=== PATIENT | female | born 1990 | race African-American/Black ===

== ENCOUNTER 2022-04-25 19:23 | Emergency (ER) | payer MEDICAID ==
[~2022-04-25] VITALS: Ht 149.9 cm; Wt 86.0 kg
[2022-04-25 19:35] VITALS: BP 116/82
== END 2022-04-25 21:00 | disposition left against medical advice (07) ==
LOC: ER 19:23
DX: Z53.21 Procedure and treatment not carried out due to patient leaving prior to being seen by health care provider (principal); Z88.2 Allergy status to sulfonamides

== ENCOUNTER 2022-10-30 05:29 | Inpatient (IN) | payer MEDICAID ==
[~2022-10-30] VITALS: Ht 149.9 cm; Wt 86.2 kg
[2022-10-30] MEDS ORDERED: LACTATED RINGERS 1,000 ML IV SCH ×2 (06:00→06:30)
[2022-10-30] MEDS ORDERED: LACTATED RINGERS 1,000 ML IV ONE (06:00)
[2022-10-30] MEDS ORDERED: OXYTOCIN 30 UNITS/500ML NS PMX 500 ML IV SCH (06:30)
[2022-10-30] MEDS ORDERED: METHYLERGONOVINE MALEATE 0.2 MG/ML IM PRN ×2 (06:30→17:15)
[2022-10-30] MEDS ORDERED: BUTORPHANOL TARTRATE 2 MG/ML VIAL IV PRN (06:30)
[2022-10-30] MEDS ORDERED: MISOPROSTOL 100MCG TABLET VG SCH (06:30)
[2022-10-30] MEDS ORDERED: CARBOPROST TROMETHAMINE 250 MCG/ML AMPUL IM PRN (06:30)
[2022-10-30] MEDS ORDERED: NALOXONE HCL 0.4 MG/ML 1ML VIAL IM PRN (06:30)
[2022-10-30] MEDS ORDERED: LIDOCAINE HCL 1% 20ML VIAL (Pyxis) INJ INFIL SCH (06:30)
[2022-10-30 06:42] LABS: CLARITY URINE CLEAR (CLEAR); COLOR URINE YELLOW (YELLOW); KETONES URINE NEGATIVE (NEGATIVE); LEUKOCYTE ESTERASE URINE TRACE (NEGATIVE); NITRITE URINE NEGATIVE (NEGATIVE); OCCULT BLOOD URINE 3+ (NEGATIVE); PH URINE 6.5 (4.5-8.0); PROTEIN URINE NEGATIVE (NEGATIVE); SPECIFIC GRAVITY URINE 1.011 (1.005-1.030); UROBILINOGEN URINE 0.2 E.U./dL (0.2-1.0)
[2022-10-30 06:51] LABS: BASOPHILS % 0.3 % (0.0-2.0); EOSINOPHILS % 1.4 % (0.0-5.0); HEMATOCRIT. 36.3 % (36.0-48.0); HEMOGLOBIN. 11.9 g/dL (12.0-16.0); MEAN CORPUSCULAR HEMOGLOBIN 29.5 pg (28.0-32.0); MEAN CORPUSCULAR VOLUME 89.9 fL (81.0-99.0); MEAN PLATELET VOLUME 9.7 fl (7.4-10.4); MONOCYTES % 7.5 % (2.0-8.0); NEUTROPHILS % 59.8 % (40.0-76.0); PLATELET 184 x1000/uL (130-400); RED BLOOD CELL COUNT 4.04 mill/uL (4.2-5.4); RED CELL DISTRIBUTION WIDTH 13.9 % (11.6-14.6)
[2022-10-30 06:54] LABS: *AMPHETAMINES SCREEN URINE NEGATIVE (NEGATIVE); *BARBITURATES SCREEN URINE NEGATIVE (NEGATIVE); *BENZODIAZEPINES SCREEN URINE NEGATIVE (NEGATIVE); *COCAINE SCREEN URINE NEGATIVE (NEGATIVE); CANNABINOID URINE SCREEN NEGATIVE (NEGATIVE); METHADONE URINE SCREEN NEGATIVE (NEGATIVE); OPIATES URINE SCREEN NEGATIVE (NEGATIVE); PHENCYCLIDINE URINE SCREEN NEGATIVE (NEGATIVE)
[2022-10-30 07:02] LABS: INR 0.9; PARTIAL THROMBOPLASTIN TIME 27.1 sec (23.4-31.0); PROTHROMBIN TIME 9.7 sec (9.6-11.0)
[2022-10-30] MEDS ORDERED: PENICILLIN G POTASSIUM 5 MMU in DEXT 5% WATER 100 ML IV SCH (07:30)
[2022-10-30] MEDS ORDERED: ROPIVACAINE HCL/PF EPIDURAL 200 ML EPI SCH (07:45)
[2022-10-30] MEDS ORDERED: RHO(D) IMMUNE GLOBULIN 300 MCG/SYR IM NR (08:00)
[2022-10-30] MEDS ORDERED: PENICILLIN G POTASSIUM 2.5 MMU in DEXTROSE 5% WATER 50 ML IV SCH (12:00)
[2022-10-30 13:45] VITALS: BP 121/72
[2022-10-30 16:30] VITALS: BP 124/88
[2022-10-30] MEDS ORDERED: RHO(D) IMMUNE GLOBULIN 300 MCG/SYR IM PRN (17:15)
[2022-10-30] MEDS ORDERED: IBUPROFEN 400MG TABLET PO PRN (17:15)
[2022-10-30] MEDS ORDERED: OXYCODONE HCL/ACETAMINOPHEN 5/325MG TABLET PO PRN (17:15)
[2022-10-30] MEDS ORDERED: LANOLIN OINT 7GM TUBE TOP PRN (17:15)
[2022-10-30] MEDS ORDERED: BISACODYL 10MG SUPP PR PRN (17:15)
[2022-10-30] MEDS: IBUPROFEN 800MG TABLET PO PRN (17:26)
[2022-10-30 20:00] VITALS: BP 113/65
[2022-10-30] MEDS: ACETAMINOPHEN 500MG TABLET PO PRN (20:45)
[2022-10-30] MEDS: MAGNESIUM/ALUMINUM HYDROXIDE/SIMETHICONE 30ML UDC PO SCH (20:46)
[2022-10-30] MEDS: SIMETHICONE 80MG TABLET CHEW PO SCH (21:07)
[2022-10-31] MEDS: ACETAMINOPHEN 500MG TABLET PO PRN (01:22)
[2022-10-31 04:00] VITALS: BP 123/72
[2022-10-31] MEDS ORDERED: LACTATED RINGERS 1,000 ML IV SCH (06:00)
[2022-10-31] MEDS ORDERED: PROPOFOL 200MG/20ML VIAL IV ONE (06:08)
[2022-10-31] MEDS ORDERED: MIDAZOLAM HCL 2 MG/2 ML VIAL ONE (06:08)
[2022-10-31] MEDS ORDERED: FENTANYL CITRATE/PF 50MCG/ML 2ML VIAL ONE (06:09)
[2022-10-31 06:10] LABS: HEMOGLOBIN 10.2 g/dL (12.0-16.0); MEAN CORPUSCULAR VOLUME 91.3 fL (81.0-99.0); PLATELET 143 x1000/uL (130-400); RED CELL DISTRIBUTION WIDTH 13.9 % (11.6-14.6)
[2022-10-31] MEDS ORDERED: BUPIVACAINE HCL/PF 0.25% (2.5MG/ML) 10ML ONE (06:18)
[2022-10-31] MEDS ORDERED: IBUPROFEN 800MG TABLET PO PRN (06:30)
[2022-10-31] MEDS ORDERED: RHO(D) IMMUNE GLOBULIN 300 MCG/SYR IM PRN (06:30)
[2022-10-31] MEDS ORDERED: IBUPROFEN 400MG TABLET PO PRN (06:30)
[2022-10-31] MEDS: MAGNESIUM/ALUMINUM HYDROXIDE/SIMETHICONE 30ML UDC PO SCH ×3 (07:30→17:22)
[2022-10-31] MEDS: SIMETHICONE 80MG TABLET CHEW PO SCH ×3 (07:59→17:23)
[2022-10-31 08:00] VITALS: BP 123/72
[2022-10-31 08:09] LABS: HIV SCREEN 4G Non Reactive (Non Reactive)
[2022-10-31] MEDS ORDERED: PRENATAL VIT/FE FUMARATE/FA TABLET PO SCH (09:00)
[2022-10-31] MEDS: IBUPROFEN 800MG TABLET PO PRN (11:31)
[2022-10-31 13:04] LABS: BASOPHILS % 0.2 % (0.0-2.0); EOSINOPHILS % 1.1 % (0.0-5.0); HEMATOCRIT. 32.3 % (36.0-48.0); HEMOGLOBIN. 10.9 g/dL (12.0-16.0); LYMPHOCYTES % 25.9 % (20.0-50.0); MEAN CORPUSCULAR HEMOGLOBIN 30.5 pg (28.0-32.0); MEAN CORPUSCULAR VOLUME 90.7 fL (81.0-99.0); MEAN PLATELET VOLUME 9.1 fl (7.4-10.4); MONOCYTES % 5.3 % (2.0-8.0); NEUTROPHILS % 67.5 % (40.0-76.0); PLATELET 167 x1000/uL (130-400); RED BLOOD CELL COUNT 3.57 mill/uL (4.2-5.4); RED CELL DISTRIBUTION WIDTH 13.8 % (11.6-14.6)
[2022-10-31 16:00] VITALS: BP 127/85
[2022-10-31 19:00] VITALS: BP 129/84
[2022-11-01] MEDS ORDERED: FERROUS SULFATE 325MG TABLET PO SCH (07:30)
== END 2022-10-31 19:40 | disposition home or self-care (01) | DRG 560 ==
LOC: 8 EST LDRP 05:29 → OBSVTOIN 05:30 → 8EST 14:30
PROVIDERS: ADMIT Obstetrics & Gynecology; ATTEND Obstetrics & Gynecology
PROC: 10E0XZZ Delivery of Products of Conception, External Approach (ICD-10-PCS; principal; 2022-10-30)
PROC: 3E0R3BZ Introduction of Anesthetic Agent into Spinal Canal, Percutaneous Approach (ICD-10-PCS; 2022-10-30)
PROC: 00HU33Z Insertion of Infusion Device into Spinal Canal, Percutaneous Approach (ICD-10-PCS; 2022-10-30)
DX: O69.81X0 Labor and delivery complicated by cord around neck, without compression, not applicable or unspecified (principal); Z37.0 Single live birth; Z20.822 Contact with and (suspected) exposure to COVID-19; Z88.2 Allergy status to sulfonamides; Z3A.38 38 weeks gestation of pregnancy
CPT/HCPCS: 36415; 76805; 76818; 80305; 81003; 85025; 85027; 86592; 86762; 86850; 86900; 87340; 87389; 87426; 99281; G0378; J2250; J2540; J2704; J2795; J3010; J3490; J7060; J7120; J2590

== ENCOUNTER 2022-12-18 10:35 | Emergency (ER) | payer MEDICAID ==
[~2022-12-18] VITALS: Ht 162.6 cm; Wt 68.0 kg
[2022-12-18] MEDS ORDERED: ACETAMINOPHEN WITH CODEINE 300/30MG TABLET PO ONE (10:45)
[2022-12-18] MEDS ORDERED: OXYCODONE HCL/ACETAMINOPHEN 5/325MG TABLET PO ONE (11:15)
[2022-12-18] MEDS ORDERED: KETOROLAC 60MG/2ML VIAL IM ONE (11:30)
[2022-12-18] MEDS ORDERED: IBUP-2028 PO (12:25)
[2022-12-18] MEDS ORDERED: HYDR-4001 MT (12:25)
[2022-12-18 12:30] VITALS: BP 138/72
== END 2022-12-18 12:45 | disposition home or self-care (01) ==
LOC: ER 10:35
DX: R07.89 Other chest pain (principal); M54.2 Cervicalgia; J45.909 Unspecified asthma, uncomplicated
CPT/HCPCS: 70450; 71045; 72125; 96372; 99285; J1885; Z7610